=== PATIENT | male | born 1985 | race Caucasian/White ===

== ENCOUNTER 2016-10-06 18:29 | Emergency (ER) | payer OTHER ==
[~2016-10-06] VITALS: Ht 175.3 cm; Wt 118.2 kg
[2016-10-06 18:41] VITALS: BP 150/78
[2016-10-06] MEDS ORDERED: SMZ/TMP 800/160MG TABLET. PO ONE (19:00)
[2016-10-06] MEDS ORDERED: traMADol 50 MG TABLET PO ONE (19:00)
[2016-10-06] MEDS ORDERED: SULF1TAB24 PO (19:10)
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
== END 2016-10-06 19:35 | disposition home or self-care (01) ==
LOC: ER 18:29
DX: L03.211 Cellulitis of face (principal); T81.4XXA Infection following a procedure, initial encounter
CPT/HCPCS: 99284